=== PATIENT | male | born 1945 | race Caucasian/White ===

== ENCOUNTER 2018-09-29 10:01 | Outpatient (CLI) | payer MEDICARE ==
--- NOTE | 2018-09-29 10:41 | ULT ---
Abdominal aortic sonogram with duplex evaluation HISTORY: Screening for aneurysm. Family history of aneurysm. FINDINGS: Good color and spectral Doppler flow within the abdominal aorta and inferior vena cava. Abd ominal aorta measures 2.3 cm greatest AP diameter. No free fluid in the retroperitoneum. Each iliac artery has a normal appearance. IMPRESSION: No sonographic evidence of abdominal aortic aneurysm.
== END 2018-09-29 10:02 | disposition home or self-care (01) ==
LOC: BICULT 10:01
PROVIDERS: ATTEND Family Medicine
DX: Z13.6 Encounter for screening for cardiovascular disorders (principal)
CPT/HCPCS: 76775

== ENCOUNTER 2019-01-10 14:05 | Outpatient (CLI) | payer MEDICARE ==
--- NOTE | 2019-01-10 16:35 | MRI ---
EXAM: MRI lumbar spine without contrast HISTORY: Neurogenic claudication. Bilateral leg pain and weakness, left greater than right. COMPARISON: 07/05/2013 TECHNIQUE: Multiple planar multisequence MR images were obtained of the lumbar spine without contrast . FINDINGS: The patient has had prior fusion of L4-S1 with bilateral pedicle screws. Disc spacers are seen in the intervening disc spaces. Laminectomies have been performed at L5. There is a persistent fluid collection in the epidural surgical bed at L5 measuring 2.9 x 1.0 x 3.9 cm in size. The vertebral bodies and remaining intervertebral discs demonstrate normal height and alignment witho ut fracture or subluxation. Multiple foci of high T2 signal in the bilateral kidneys represent cysts. No marrow signal abnormality is present. The conus medullaris terminates normally at T12/L1. T12/L1: Minimal disc osteophyte complex. No posterior facet arthrosis. No central canal stenosis. Mild bilateral neural foraminal stenosis L1/2: Minimal disc osteophyte complex. Mild bilateral posterior facet arthrosis. No central canal s tenosis. Mild bilateral neural foraminal stenosis L2/3: A small disc osteophyte complex. No posterior facet arthrosis. No central canal stenosis. No neural foraminal stenosis L3/4: A moderate disc osteophyte complex is seen. Moderate to severe bilateral posterior facet arthr osis. Severe central canal stenosis. Moderate to severe neural foraminal stenosis L4/5: Fusion at this level. Posterior facets cannot be assessed secondary to streak artifact from ochoa rdware. No central canal stenosis. No neural foraminal stenosis L5/S1: Fusion at this level. Posterior facets cannot be assessed secondary to streak artifact from h ardware. No central canal stenosis. No neural foraminal stenosis IMPRESSION: Degenerative changes of lumbar spine as above, greatest at L3/4
== END 2019-01-10 14:06 | disposition home or self-care (01) ==
LOC: SCSMRI 14:05
PROVIDERS: ATTEND Anesthesiology Pain Medicine
DX: M48.062 Spinal stenosis, lumbar region with neurogenic claudication (principal); M47.816 Spondylosis without myelopathy or radiculopathy, lumbar region
CPT/HCPCS: 72148

== ENCOUNTER 2019-02-07 13:17 | Outpatient (CLI) | payer MEDICARE ==
--- NOTE | 2019-02-07 13:39 | RAD ---
EXAM: 4 views of the lumbosacral spine HISTORY: Spinal stenosis COMPARISON: None FINDINGS: 4 views of the lumbosacral spine shows normal height and alignment of the vertebral bodies and intervertebral discs without fracture or subluxation. The patient is status post fusion of L4-S1 with bilateral pedicle screws. Intervening disc spacers are seen in the disc spaces. No perihar dware lucency is seen. Laminectomies have been performed at L5. Alignment is unchanged with flexion and extension. The sacroiliac joints are unremarkable. An inferior vena cava filter is seen. IMPRESSION: No significant lumbar spine abnormality.
== END 2019-02-07 13:18 | disposition home or self-care (01) ==
LOC: SCSRAD 13:17
PROVIDERS: ATTEND Neurological Surgery
DX: M54.16 Radiculopathy, lumbar region (principal)
CPT/HCPCS: 72110

== ENCOUNTER 2019-03-04 10:09 | Outpatient (CLI) | payer MEDICARE ==
--- NOTE | 2019-03-04 11:55 | MRI ---
MRI CERVICAL SPINE WITHOUT CONTRAST: HISTORY: Neck pain.. COMPARISON: 02/24/2012. FINDINGS: Straightening of normal cervical lordosis. Appropriate T1 marrow signal intensity of the cervical flakita tebrae. Cervical spine vertebral body height is maintained. No fracture. Type I Modic changes at the anterior C3-C4 disc space. No evidence of ligamentous injury. Visualized brain parenchyma, cervicomedullary junction, cervical cord and the upper thoracic cord hav e a normal size and signal intensity. Prominent T2 hyperintensity in the posterior fossa, unchanged. Findings may represent a philippe cisterna magna. Nonemergent head CT can be performed for con firmation. C2-C3: 1.5 mm of anterolisthesis. No significant central canal stenosis or significant neural foramin al narrowing. C3-C4: Moderate to severe loss of disc space height. Moderate disc-osteophyte complex effaces the sub arachnoid space. Moderate to severe central canal stenosis. Moderate right and left foraminal narrowing due to uncovertebral hypertrophy. C4-C5: Broad-based disc-osteophyte complex nearly effaces the subarachnoid space. Moderate central ca nal stenosis. Mild bilateral neural foraminal narrowing due to uncovertebral hypertrophy. C5-C6: Broad-based disc-osteophyte complex nearly effaces the subarachnoid space. Moderate central ca nal stenosis. Moderate to severe bilateral neural foraminal narrowing due to uncovertebral hypertrophy. C6-C7: Moderate severe loss of disc space height. Broad-based disc-osteophyte complex abuts the theca l sac. Moderate central canal stenosis. Moderate to severe bilateral neural foraminal narrowing. C7-T1: No significant central canal stenosis or significant neural foraminal narrowing. IMPRESSION: 1. Degenerative changes of the cervical spine as detailed above. 2. 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 Dedicated noncontrast head CT can be performed. CODE T Transcribed Date/Time: 03/04/2019 12:17 PM
--- NOTE | 2019-03-04 12:25 | RAD ---
CERVICAL SPINE SERIES WITH FLEXION AND EXTENSION: Date: 03/04/19 HISTORY: Neck pain. FINDINGS: Vertebral bodies are normal in height. There is marked disc narrowing at C3-4, moderate disc narrowin g at C5-6, and marked disc narrowing at C6-7. On the flexion view, most of the flexion occurs at the C4-5 level, with minimal anterolisthesis developing. There is restricted motion of the lower cervical spine. IMPRESSION: Marked arthritic changes of the spine. POS: TPC
--- NOTE | 2019-03-04 13:13 | RAD ---
LUMBAR SPINE SERIES 3 VIEWS: HISTORY: Back pain with left radiculopathy. Postop. COMPARISON: 02/07/2019 exam. FINDINGS: Postoperative changes with bilateral pedicle screws were noted at the L4-, L5, and S1 levels. These flexion and extension views show no abnormal motion on either flexion or extension. Marked disk narr owing is seen at the L2-3 level. IVC filter is incidentally seen. IMPRESSION: Postoperative change of the spine. POS: TPC
== END 2019-03-04 10:10 | disposition home or self-care (01) ==
LOC: SCSMRI 10:09
PROVIDERS: ATTEND Neurological Surgery
DX: M54.16 Radiculopathy, lumbar region (principal); M54.2 Cervicalgia; M47.812 Spondylosis without myelopathy or radiculopathy, cervical region; Z98.890 Other specified postprocedural states
CPT/HCPCS: 72040; 72100; 72141

== ENCOUNTER 2019-07-18 13:24 | Outpatient (CLI) | payer MEDICARE ==
--- NOTE | 2019-07-18 14:24 | ULT ---
US Renal Bilateral STANDARD HISTORY: Cysts seen on lumbar MRI of 01/10/2019 COMPARISON: None. FINDINGS: The right kidney measures 11.8 cm in length and the left kidney measures 12.6 cm in length. Multiple bilateral renal cysts are present the largest of which is in the inferior pole of the left kidney measuring 2.8 cm. The urinary bladder is well distended and normal. IMPRESSION: Bilateral renal cysts.
== END 2019-07-18 13:25 | disposition home or self-care (01) ==
LOC: SCSULT 13:24
PROVIDERS: ATTEND Internal Medicine Nephrology
DX: N18.3 Chronic kidney disease, stage 3 (moderate) (principal); N28.1 Cyst of kidney, acquired
CPT/HCPCS: 76770

== ENCOUNTER 2021-07-18 11:58 | Inpatient (IN) | payer MEDICARE ==
[2021-07-18 12:25] LABS: #Eosinphils 0.2 thou/uL (0.0-0.7); #Lymphocytes 1.5 thou/uL (1.20-3.40); #Monocytes 0.8 thou/uL (0.11-0.59); #Neutrophils 4.2 thou/uL (1.40-6.50); %Basophils 0.3 % (0.0-1.0); %Lymphocytes 22.5 % (21.0-51.0); %Monocytes 12.2 % (0.0-10.0); Hemoglobin 13.7 g/dL (14.0-18.0); Mean Corpuscular HGB CONC 32.7 g/dL (32.0-36.0); Mean Corpuscular Hemoglobin 31.6 pg (27.0-31.0); Mean Corpuscular Volume 96.5 fL (78.0-98.0); Mean Platelet Volume 8.6 fL (7.4-10.4); Platelet Count 226 thou/uL (130-400); RBC Distribution Width 12.9 % (11.5-14.5); Red Blood Cell (RBC) Count 4.34 mill/uL (4.70-6.10); White Blood Cell (WBC) Count 6.7 thou/uL (4.8-10.8)
[2021-07-18 12:52] LABS: ALT (SGPT) 24 U/L (8-55); AST (SGOT) 23 U/L (5-34); Albumin 4.5 g/dL (3.4-4.8); Alkaline Phosphatase 100 U/L (40-110); Anion Gap 18 mmol/L (10-20); BUN (Urea Nitrogen) 27 mg/dL (8.4-25.7); Bilirubin, Total 0.5 mg/dL (0.2-1.2); Calc. Creatinine Clearance 0 mL/min (70-130); Calcium 9.8 mg/dL (7.8-10.44); Carbon Dioxide 19 mmol/L (23-31); Chloride 107 mmol/L (98-107); Globulin 3.2 g/dL (2.4-3.5); Glucose 223 mg/dL (83-110); Lipase 38 U/L (8-78); Potassium 4.7 mmol/L (3.5-5.1); Protein, Total 7.7 g/dL (5.8-8.1); Sodium 139 mmol/L (136-145)
[2021-07-18] MEDS ORDERED: Nitroglycerin 2% Ointment 1 INCH/1 GM Packet ONE (13:14)
[2021-07-18] MEDS ORDERED: Aspirin Chewable 81 MG TAB ONE (13:14)
[2021-07-18] MEDS ORDERED: Morphine 2 MG/ML VIAL SLOW IVP PRN (13:59)
[2021-07-18] MEDS ORDERED: Budesonide 0.5 MG/2 ML NEB NEB SCH (14:00)
[2021-07-18] MEDS ORDERED: Enoxaparin Sodium 100 MG/ML SYRINGE ONE (14:15)
[2021-07-18] MEDS ORDERED: Dextrose 50% Abboject 50 ML SYRINGE SLOW IVP PRN (14:18)
[2021-07-18] MEDS ORDERED: Insulin Regular 300 UNITS/3 ML VIAL SC PRN ×2 (14:18)
[2021-07-18] MEDS ORDERED: Dextrose 5% in Water 1,000 ML IV PRN (14:18)
[2021-07-18] MEDS: Ipratropium Bromide 2.5 ml Neb NEB SCH ×3 (14:31→22:06)
[2021-07-18] MEDS ORDERED: Budesonide 0.5 MG/2 ML NEB ONE (14:34)
[2021-07-18] MEDS ORDERED: Mometasone 200 MCG/Formoterol 5 MCG 120 PUFF INHALER INH PRN (14:42)
[2021-07-18] MEDS ORDERED: Morphine 4 MG/ML VIAL ONE (16:00)
[2021-07-18] MEDS ORDERED: Ipratropium Bromide 2.5 ml Neb ONE (18:05)
[2021-07-18 19:35] VITALS: BMI 31.1
[2021-07-18] MEDS: Atorvastatin Calcium 20 MG TAB PO SCH (20:32)
[2021-07-18] MEDS: Nitroglycerin 2% Ointment 1 INCH/1 GM Packet TOP SCH (20:33)
[2021-07-18 23:56] LABS: SARS-CoV-2 PCR by NAA Not Detected (NotDetected)
[2021-07-19] MEDS: Ipratropium Bromide 2.5 ml Neb NEB SCH ×6 (01:17→22:32)
[2021-07-19] MEDS ORDERED: Morphine 4 MG/ML VIAL SLOW IVP PRN (03:30)
[2021-07-19 04:59] LABS: Cardiac Risk 4.2 (Less than 4.5)
[2021-07-19 07:31] LABS: Anion Gap 16 mmol/L (10-20); BUN (Urea Nitrogen) 28 mg/dL (8.4-25.7); Calc. Creatinine Clearance 53 mL/min (70-130); Carbon Dioxide 22 mmol/L (23-31); Chloride 107 mmol/L (98-107); Potassium 4.2 mmol/L (3.5-5.1); Sodium 141 mmol/L (136-145)
[2021-07-19 07:32] LABS: Calcium 9.4 mg/dL (7.8-10.44); Glucose 130 mg/dL (83-110)
[2021-07-19] MEDS: Sodium Chloride 0.9% 1,000 ML IV SCH ×2 (08:49→18:10)
[2021-07-19] MEDS: Nitroglycerin 2% Ointment 1 INCH/1 GM Packet TOP SCH ×2 (08:50→21:07)
[2021-07-19] MEDS ORDERED: traMADol HCl 50 MG TAB PO SCH ×2 (12:31→12:45)
[2021-07-19] MEDS: Aspirin Chewable 81 MG TAB PO SCH (13:19)
[2021-07-19] MEDS ORDERED: Communication Order-Pharmacy FS SCH (13:45)
[2021-07-19] MEDS: traMADol HCl 50 MG TAB PO SCH (21:06)
[2021-07-19] MEDS: Atorvastatin Calcium 20 MG TAB PO SCH (21:07)
[2021-07-20] MEDS: Ipratropium Bromide 2.5 ml Neb NEB SCH ×6 (02:06→21:53)
[2021-07-20] MEDS: Sodium Chloride 0.9% 1,000 ML IV SCH ×2 (04:00→16:22)
[2021-07-20] MEDS: Aspirin Chewable 81 MG TAB PO SCH (09:05)
[2021-07-20] MEDS: traMADol HCl 50 MG TAB PO SCH ×2 (09:06→20:13)
[2021-07-20] MEDS: Nitroglycerin 2% Ointment 1 INCH/1 GM Packet TOP SCH ×2 (11:57→20:12)
[2021-07-20] MEDS: Atorvastatin Calcium 20 MG TAB PO SCH (20:13)
[2021-07-21] MEDS: Ipratropium Bromide 2.5 ml Neb NEB SCH ×6 (01:50→22:06)
[2021-07-21] MEDS: Sodium Chloride 0.9% 1,000 ML IV SCH ×5 (02:05→23:20)
[2021-07-21 05:22] LABS: Anion Gap 13 mmol/L (10-20); BUN (Urea Nitrogen) 21 mg/dL (8.4-25.7); Calc. Creatinine Clearance 63 mL/min (70-130); Calcium 8.9 mg/dL (7.8-10.44); Carbon Dioxide 20 mmol/L (23-31); Chloride 109 mmol/L (98-107); Glucose 134 mg/dL (83-110); Potassium 4.3 mmol/L (3.5-5.1); Sodium 138 mmol/L (136-145)
[2021-07-21] MEDS: Aspirin Chewable 81 MG TAB PO SCH (09:18)
[2021-07-21] MEDS: traMADol HCl 50 MG TAB PO SCH ×2 (09:18→20:10)
[2021-07-21] MEDS: Nitroglycerin 2% Ointment 1 INCH/1 GM Packet TOP SCH ×2 (09:18→20:11)
[2021-07-21] MEDS: Atorvastatin Calcium 20 MG TAB PO SCH (20:10)
[2021-07-22] MEDS: Ipratropium Bromide 2.5 ml Neb NEB SCH ×4 (01:57→14:52)
[2021-07-22] MEDS: traMADol HCl 50 MG TAB PO SCH (05:26)
[2021-07-22] MEDS: Aspirin Chewable 81 MG TAB PO SCH (05:27)
[2021-07-22 05:42] LABS: ALT (SGPT) 20 U/L (8-55); AST (SGOT) 17 U/L (5-34); Albumin 3.8 g/dL (3.4-4.8); Alkaline Phosphatase 86 U/L (40-110); Anion Gap 11 mmol/L (10-20); BUN (Urea Nitrogen) 20 mg/dL (8.4-25.7); Bilirubin, Total 0.5 mg/dL (0.2-1.2); Calc. Creatinine Clearance 63 mL/min (70-130); Calcium 8.9 mg/dL (7.8-10.44); Carbon Dioxide 21 mmol/L (23-31); Chloride 108 mmol/L (98-107); Globulin 2.8 g/dL (2.4-3.5); Glucose 146 mg/dL (83-110); Protein, Total 6.6 g/dL (5.8-8.1); Sodium 136 mmol/L (136-145)
[2021-07-22] MEDS ORDERED: Lidocaine 1% (PF) 30 ML VIAL ONE (06:30)
[2021-07-22] MEDS ORDERED: Fentanyl 100 MCG/2 ML VIAL ONE (07:05)
[2021-07-22] MEDS ORDERED: Midazolam HCl 2 mg/2 ml Vial ONE (07:05)
[2021-07-22] MEDS ORDERED: Acetaminophen/Codeine 30-300mg Tablet PO PRN ×2 (07:41)
[2021-07-22] MEDS ORDERED: Nitroglycerin 0.4 MG TAB (25 Tab Bottle) SL PRN (07:41)
[2021-07-22] MEDS ORDERED: Sodium Chloride 0.9% 200 ML IV PRN (07:41)
[2021-07-22] MEDS ORDERED: Sodium Chloride 0.9% 1,000 ML IV SCH (07:45)
[2021-07-22] MEDS ORDERED: Iopamidol 370 76% 100 ML VIAL ONE (10:01)
[2021-07-22 11:16] VITALS: BP 135/73; TEMP 97.7
[2021-07-22] MEDS: Sodium Chloride 0.9% 1,000 ML IV SCH (12:58)
[2021-07-22] MEDS: Nitroglycerin 2% Ointment 1 INCH/1 GM Packet TOP SCH (12:58)
== END 2021-07-22 14:45 | disposition home or self-care (01) | DRG 287 ==
LOC: ERS 11:58 → ERHOLD 13:36 → OBSVTOIN 14:01 → 2SW 19:32
PROVIDERS: ADMIT Internal Medicine; ATTEND Internal Medicine
PROC: 4A023N7 Measurement of Cardiac Sampling and Pressure, Left Heart, Percutaneous Approach (ICD-10-PCS; principal; 2021-07-22)
PROC: B2151ZZ Fluoroscopy of Left Heart using Low Osmolar Contrast (ICD-10-PCS; 2021-07-22)
PROC: B2111ZZ Fluoroscopy of Multiple Coronary Arteries using Low Osmolar Contrast (ICD-10-PCS; 2021-07-22)
DX: I25.110 Atherosclerotic heart disease of native coronary artery with unstable angina pectoris (principal); N17.9 Acute kidney failure, unspecified; I44.2 Atrioventricular block, complete; Z20.822 Contact with and (suspected) exposure to COVID-19; E78.5 Hyperlipidemia, unspecified; I12.9 Hypertensive chronic kidney disease with stage 1 through stage 4 chronic kidney disease, or unspecified chronic kidney disease; G47.33 Obstructive sleep apnea (adult) (pediatric); J44.9 Chronic obstructive pulmonary disease, unspecified; E11.22 Type 2 diabetes mellitus with diabetic chronic kidney disease; I44.0 Atrioventricular block, first degree; N18.32 Chronic kidney disease, stage 3b; Z86.711 Personal history of pulmonary embolism; Z79.82 Long term (current) use of aspirin; Z79.51 Long term (current) use of inhaled steroids; Z79.84 Long term (current) use of oral hypoglycemic drugs; Z79.899 Other long term (current) drug therapy; Z87.891 Personal history of nicotine dependence; Z98.890 Other specified postprocedural states
CPT/HCPCS: 36415; 36416; 71045; 80048; 80053; 80061; 83690; 84484; 85025; 93005; 93458; 94640; 94760; 96372; 99152; 99153; J1650; J1815; J2001; J2250; J2270; J3010; J7050; J7620; J7626; Q9967; U0003; U0005

== ENCOUNTER 2021-07-24 10:17 | Emergency (ER) | payer MEDICARE ==
[2021-07-24 11:19] LABS: #Basophils 0.1 thou/uL (0.0-0.2); #Eosinphils 0.6 thou/uL (0.0-0.7); #Lymphocytes 1.3 thou/uL (1.20-3.40); #Monocytes 0.9 thou/uL (0.11-0.59); %Basophils 0.7 % (0.0-1.0); %Eosinophils 7.9 % (0.0-10.0); %Lymphocytes 16.5 % (21.0-51.0); %Monocytes 11.2 % (0.0-10.0); %Neutrophils 63.7 % (42.0-75.0); Hemoglobin 13.2 g/dL (14.0-18.0); Mean Corpuscular HGB CONC 32.2 g/dL (32.0-36.0); Mean Corpuscular Volume 96.3 fL (78.0-98.0); Mean Platelet Volume 8.6 fL (7.4-10.4); Platelet Count 274 thou/uL (130-400); RBC Distribution Width 13.3 % (11.5-14.5); Red Blood Cell (RBC) Count 4.24 mill/uL (4.70-6.10); White Blood Cell (WBC) Count 7.8 thou/uL (4.8-10.8)
[2021-07-24 11:47] LABS: ALT (SGPT) 21 U/L (8-55); AST (SGOT) 27 U/L (5-34); Albumin 4.2 g/dL (3.4-4.8); Alkaline Phosphatase 98 U/L (40-110); Anion Gap 18 mmol/L (10-20); BUN (Urea Nitrogen) 48 mg/dL (8.4-25.7); Bilirubin, Total 0.4 mg/dL (0.2-1.2); Calc. Creatinine Clearance 0 mL/min (70-130); Calcium 9.3 mg/dL (7.8-10.44); Carbon Dioxide 18 mmol/L (23-31); Chloride 108 mmol/L (98-107); Globulin 3.6 g/dL (2.4-3.5); Glucose 138 mg/dL (83-110); Potassium 4.9 mmol/L (3.5-5.1); Protein, Total 7.8 g/dL (5.8-8.1); Sodium 139 mmol/L (136-145)
[2021-07-24 14:08] LABS: Anion Gap 16 mmol/L (10-20); BUN (Urea Nitrogen) 45 mg/dL (8.4-25.7); Calc. Creatinine Clearance 0 mL/min (70-130); Calcium 8.7 mg/dL (7.8-10.44); Carbon Dioxide 18 mmol/L (23-31); Chloride 112 mmol/L (98-107); Glucose 83 mg/dL (83-110); Potassium 4.2 mmol/L (3.5-5.1); Sodium 142 mmol/L (136-145)
== END 2021-07-24 15:20 | disposition home or self-care (01) ==
LOC: ERS 10:17
DX: N17.9 Acute kidney failure, unspecified (principal); R53.1 Weakness; I45.10 Unspecified right bundle-branch block; J44.9 Chronic obstructive pulmonary disease, unspecified; E11.9 Type 2 diabetes mellitus without complications; I10 Essential (primary) hypertension; E78.5 Hyperlipidemia, unspecified; G47.30 Sleep apnea, unspecified
CPT/HCPCS: 36415; 70450; 70551; 72125; 80053; 85025; 93005; 94760

== ENCOUNTER 2021-07-26 09:47 | Outpatient (CLI) | payer MEDICARE | END 2021-07-26 09:48 | disposition home or self-care (01) | LOC: BICRAD 09:47 | PROVIDERS: ATTEND Physician Assistant | DX: M25.512 Pain in left shoulder (principal); M19.012 Primary osteoarthritis, left shoulder ==

== ENCOUNTER 2022-05-31 13:36 | Emergency (ER) | payer MEDICARE ==
[2022-05-31 14:49] LABS: #Eosinphils 0.2 thou/uL (0.0-0.7); #Lymphocytes 1.2 thou/uL (1.20-3.40); #Monocytes 0.6 thou/uL (0.11-0.59); #Neutrophils 4.4 thou/uL (1.40-6.50); %Basophils 0.5 % (0.0-1.0); %Eosinophils 3.8 % (0.0-10.0); %Lymphocytes 18.5 % (21.0-51.0); %Monocytes 9.6 % (0.0-10.0); %Neutrophils 67.6 % (42.0-75.0); Hemoglobin 14.8 g/dL (14.0-18.0); Mean Corpuscular HGB CONC 32.8 g/dL (32.0-36.0); Mean Corpuscular Hemoglobin 31.9 pg (27.0-31.0); Mean Corpuscular Volume 97.4 fl (78.0-98.0); Mean Platelet Volume 8.8 fL (7.4-10.4); Platelet Count 209 10x3/uL (130-400); RBC Distribution Width 12.8 % (11.5-14.5); Red Blood Cell (RBC) Count 4.64 mill/uL (4.70-6.10); White Blood Cell (WBC) Count 6.6 10x3/uL (4.8-10.8)
[2022-05-31 15:16] LABS: ALT (SGPT) 25 U/L (8-55); AST (SGOT) 20 U/L (5-34); Albumin 4.4 g/dL (3.4-4.8); Alkaline Phosphatase 95 U/L (40-110); Anion Gap 15 mmol/L (10-20); BUN (Urea Nitrogen) 34 mg/dL (8.4-25.7); Bilirubin, Total 0.5 mg/dL (0.2-1.2); Calc. Creatinine Clearance 0 mL/min (70-130); Calcium 9.8 mg/dL (7.8-10.44); Carbon Dioxide 22 mmol/L (23-31); Chloride 103 mmol/L (98-107); Estimated GFR 39; Globulin 3.1 g/dL (2.4-3.5); Glucose 205 mg/dL (83-110); Lipase 48 U/L (8-78); Potassium 4.6 mmol/L (3.5-5.1); Protein, Total 7.5 g/dL (5.8-8.1); Sodium 135 mmol/L (136-145)
[2022-05-31] MEDS ORDERED: Aspirin 325 MG TAB ONE (15:47)
== END 2022-05-31 19:57 | disposition home or self-care (01) ==
LOC: ERS 13:36
DX: R07.9 Chest pain, unspecified (principal); J44.9 Chronic obstructive pulmonary disease, unspecified; E11.9 Type 2 diabetes mellitus without complications; I10 Essential (primary) hypertension; E78.5 Hyperlipidemia, unspecified
CPT/HCPCS: 36415; 71045; 80053; 83690; 84484; 85025; 93005

== ENCOUNTER 2022-06-28 14:13 | Emergency (ER) | payer MEDICARE ==
[2022-06-28 14:55] LABS: #Basophils 0.1 thou/uL (0.0-0.2); #Eosinphils 0.2 thou/uL (0.0-0.7); #Lymphocytes 1.3 thou/uL (1.20-3.40); #Monocytes 0.8 thou/uL (0.11-0.59); %Basophils 0.8 % (0.0-1.0); %Eosinophils 3.7 % (0.0-10.0); %Lymphocytes 20.3 % (21.0-51.0); %Monocytes 13.1 % (0.0-10.0); %Neutrophils 62.1 % (42.0-75.0); Hemoglobin 13.3 g/dL (14.0-18.0); Mean Corpuscular HGB CONC 33.6 g/dL (32.0-36.0); Mean Corpuscular Hemoglobin 32.1 pg (27.0-31.0); Mean Corpuscular Volume 95.6 fl (78.0-98.0); Mean Platelet Volume 8.8 fL (7.4-10.4); Platelet Count 229 10x3/uL (130-400); RBC Distribution Width 13.1 % (11.5-14.5); Red Blood Cell (RBC) Count 4.14 mill/uL (4.70-6.10); White Blood Cell (WBC) Count 6.4 10x3/uL (4.8-10.8)
[2022-06-28 15:09] LABS: INR-International Normal Ratio 0.9; PTT 28.3 sec (22.9-36.1); Prothrombin Time 12.9 sec (12.0-14.7)
[2022-06-28 15:15] LABS: ALT (SGPT) 24 U/L (8-55); AST (SGOT) 18 U/L (5-34); Alkaline Phosphatase 84 U/L (40-110); Anion Gap 15 mmol/L (10-20); BUN (Urea Nitrogen) 32 mg/dL (8.4-25.7); Bilirubin, Total 0.4 mg/dL (0.2-1.2); Calc. Creatinine Clearance 0 mL/min (70-130); Calcium 9.9 mg/dL (7.8-10.44); Carbon Dioxide 22 mmol/L (23-31); Chloride 107 mmol/L (98-107); Estimated GFR 36; Glucose 203 mg/dL (83-110); Lipase 43 U/L (8-78); Potassium 4.2 mmol/L (3.5-5.1); Sodium 140 mmol/L (136-145)
[2022-06-28 17:56] LABS: Bacteria/HPF 4+ HPF (None Seen); Bilirubin Negative (Negative); Blood, Urine Negative (Negative); Clarity Cloudy (Clear); Glucose, Urine (Dipstick) 200 mg/dL (Negative); Ketone, Urine Negative (Negative); Leukocyte 75 Leu/uL (Negative); Nitrite Negative (Negative); Protein, Urine (Dipstick) 30 mg/dL (Neg-Trace); RBC/HPF 0-3 HPF (0-3); Specific Gravity, Urine 1.017 (1.002-1.036); Squamous Epithelial None Seen HPF (0-3); Urobilinogen Normal mg/dL (Less than 2); WBC/HPF 21-50 HPF (0-3); pH, Urine 7.5 (5.0-9.0)
== END 2022-06-28 18:07 | disposition home or self-care (01) ==
LOC: ERS 14:13
DX: K62.5 Hemorrhage of anus and rectum (principal); J44.9 Chronic obstructive pulmonary disease, unspecified; E11.9 Type 2 diabetes mellitus without complications; I10 Essential (primary) hypertension; E78.5 Hyperlipidemia, unspecified
CPT/HCPCS: 36415; 80053; 81003; 81015; 82274; 83690; 83735; 84484; 85025; 85610; 85730; 86850; 86900; 86901; 93005

== ENCOUNTER 2023-02-05 02:20 | Inpatient (IN) | payer MEDICARE ==
[2023-02-05 03:03] LABS: Bacteria/HPF None Seen HPF (None Seen); Bilirubin Negative (Negative); Blood, Urine Negative (Negative); CAUTI Indications for Culture Pelvic or flank pain; Clarity Clear (Clear); Glucose, Urine (Dipstick) 500 mg/dL (Negative); Ketone, Urine 20 mg/dL (Negative); Leukocyte Negative Leu/uL (Negative); Nitrite Negative (Negative); Protein, Urine (Dipstick) 50 mg/dL (Neg-Trace); RBC/HPF 0-3 HPF (0-3); Specific Gravity, Urine 1.014 (1.002-1.036); Squamous Epithelial 0-3 HPF (0-3); Urobilinogen Normal mg/dL (Less than 2); WBC/HPF 0-3 HPF (0-3)
[2023-02-05 03:30] LABS: Urine Culture Reflex No No
[2023-02-05 04:04] LABS: #Monocytes 0.7 thou/uL (0.11-0.59); #Neutrophils 12.6 thou/uL (1.40-6.50); %Basophils 0.3 % (0.0-1.0); %Eosinophils 0.1 % (0.0-10.0); %Lymphocytes 4.4 % (21.0-51.0); %Monocytes 5.1 % (0.0-10.0); %Neutrophils 89.5 % (42.0-75.0); Hematocrit 41.2 % (42.0-52.0); Hemoglobin 13.1 g/dL (14.0-18.0); Mean Corpuscular HGB CONC 31.8 g/dL (32.0-36.0); Mean Corpuscular Hemoglobin 28.9 pg (27.0-31.0); Mean Corpuscular Volume 90.9 fl (78.0-98.0); Mean Platelet Volume 12.1 fL (7.4-10.4); Platelet Count 233 10x3/uL (130-400); RBC Distribution Width 15.8 % (11.5-14.5); Red Blood Cell (RBC) Count 4.53 mill/uL (4.70-6.10)
[2023-02-05 04:51] LABS: ALT (SGPT) 22 U/L (8-55); AST (SGOT) 23 U/L (5-34); Albumin 5.1 g/dL (3.4-4.8); Alkaline Phosphatase 91 U/L (40-110); Anion Gap 22 mmol/L (10-20); BUN (Urea Nitrogen) 40 mg/dL (8.4-25.7); Bilirubin, Total 0.5 mg/dL (0.2-1.2); Calc. Creatinine Clearance 0 mL/min (70-130); Calcium 10.6 mg/dL (7.8-10.44); Carbon Dioxide 18 mmol/L (23-31); Chloride 103 mmol/L (98-107); Estimated GFR 41; Globulin 3.2 g/dL (2.4-3.5); Glucose 252 mg/dL (83-110); Lipase 40 U/L (8-78); Magnesium 1.9 mg/dL (1.6-2.6); Potassium 4.6 mmol/L (3.5-5.1); Protein, Total 8.3 g/dL (5.8-8.1); Sodium 138 mmol/L (136-145)
[2023-02-05 04:53] LABS: Troponin I 0.031 ng/mL (< 0.028)
[2023-02-05] MEDS ORDERED: Ondansetron PF 4 MG/2 ML Vial ONE (05:54)
[2023-02-05] MEDS ORDERED: Morphine 4 MG/ML VIAL ONE (05:54)
[2023-02-05] MEDS ORDERED: Piperacillin/Tazobactam 3.375 GM VIAL ONE (05:55)
[2023-02-05] MEDS ORDERED: Ondansetron ODT 4 MG TAB PO PRN (07:17)
[2023-02-05] MEDS ORDERED: Acetaminophen 325 MG TAB PO PRN (07:17)
[2023-02-05] MEDS ORDERED: Morphine 4 MG/ML VIAL SLOW IVP PRN (07:17)
[2023-02-05] MEDS ORDERED: Ondansetron PF 4 MG/2 ML Vial IVP PRN (07:17)
[2023-02-05] MEDS ORDERED: Glucagon 1 MG/ML KIT IM PRN (07:24)
[2023-02-05] MEDS ORDERED: Dextrose 5% in Water 1,000 ML IV PRN (07:24)
[2023-02-05] MEDS ORDERED: Dextrose 50% Abboject 50 ML SYRINGE SLOW IVP PRN (07:24)
[2023-02-05] MEDS ORDERED: Albuterol 200 PUFF (6.7GM INHALER) INH PRN (07:25)
[2023-02-05 08:21] LABS: Troponin I 0.098 ng/mL (< 0.028)
[2023-02-05] MEDS ORDERED: Heparin 5,000 UNITS/ML VIAL SC SCH (09:00)
[2023-02-05] MEDS ORDERED: Piperacillin/Tazobactam 3.375 GM in Sodium Chloride 0.9% 100 ML IVPB SCH ×2 (10:00→12:00)
[2023-02-05] MEDS: Sodium Chloride 0.9% 1,000 ML IV SCH ×3 (10:32→20:32)
[2023-02-05] MEDS: Aspirin Chewable 81 MG TAB PO SCH (10:34)
[2023-02-05] MEDS: Atorvastatin Calcium 40 MG TAB PO SCH (10:36)
[2023-02-05] MEDS: Pantoprazole 40 MG VIAL IVP SCH (10:41)
[2023-02-05] MEDS ORDERED: Insulin Regular 300 UNITS/3 ML VIAL ONE (11:15)
[2023-02-05] MEDS: HumaLOG 300 UNITS/3 ML VIAL SC PRN (11:22)
[2023-02-05 11:50] LABS: Troponin I 0.109 ng/mL (< 0.028)
[2023-02-05] MEDS: Morphine 2 MG/ML VIAL SLOW IVP PRN (13:10)
[2023-02-05] MEDS ORDERED: Iopamidol-370 76% 500 ML MDV (1 ML CHARGE) ONE (13:18)
[2023-02-05] MEDS: Piperacillin/Tazobactam 3.375 GM in Sodium Chloride 0.9% 100 ML IVPB SCH ×2 (13:31→20:40)
[2023-02-05] MEDS: Dextrose 5 %-0.45 % NaCl 1,000 ML IV SCH (21:37)
[2023-02-06] MEDS ORDERED: Sevoflurane 250 ML INH ANEST BOTTLE ONE (05:18)
[2023-02-06 05:36] LABS: #Eosinphils 0.1 thou/uL (0.0-0.7); #Monocytes 1.4 thou/uL (0.11-0.59); #Neutrophils 9.2 thou/uL (1.40-6.50); %Basophils 0.3 % (0.0-1.0); %Eosinophils 0.9 % (0.0-10.0); %Lymphocytes 8.3 % (21.0-51.0); %Monocytes 12.1 % (0.0-10.0); %Neutrophils 78.1 % (42.0-75.0); Hemoglobin 12.4 g/dL (14.0-18.0); Mean Corpuscular Hemoglobin 28.7 pg (27.0-31.0); Mean Corpuscular Volume 92.6 fl (78.0-98.0); Mean Platelet Volume 11.1 fL (7.4-10.4); Platelet Count 204 10x3/uL (130-400); Red Blood Cell (RBC) Count 4.32 mill/uL (4.70-6.10); White Blood Cell (WBC) Count 11.8 10x3/uL (4.8-10.8)
[2023-02-06] MEDS: Piperacillin/Tazobactam 3.375 GM in Sodium Chloride 0.9% 100 ML IVPB SCH ×3 (05:42→21:45)
[2023-02-06] MEDS: Dextrose 5 %-0.45 % NaCl 1,000 ML IV SCH ×2 (05:43→14:05)
[2023-02-06] MEDS: Morphine 2 MG/ML VIAL SLOW IVP PRN (05:46)
[2023-02-06 05:55] LABS: ALT (SGPT) 19 U/L (8-55); AST (SGOT) 16 U/L (5-34); Alkaline Phosphatase 67 U/L (40-110); Anion Gap 12 mmol/L (10-20); BUN (Urea Nitrogen) 23 mg/dL (8.4-25.7); Bilirubin, Total 0.8 mg/dL (0.2-1.2); Calc. Creatinine Clearance 0 mL/min (70-130); Calcium 9.2 mg/dL (7.8-10.44); Carbon Dioxide 23 mmol/L (23-31); Chloride 105 mmol/L (98-107); Estimated GFR 48; Globulin 2.8 g/dL (2.4-3.5); Glucose 113 mg/dL (83-110); Potassium 3.8 mmol/L (3.5-5.1); Protein, Total 6.8 g/dL (5.8-8.1); Sodium 136 mmol/L (136-145)
[2023-02-06] MEDS ORDERED: EPINEPHrine 1 MG/ML AMP ONE (08:07)
[2023-02-06] MEDS ORDERED: Bupivacaine 0.25% HCL 30 ML VIAL ONE (08:07)
[2023-02-06] MEDS: Atorvastatin Calcium 40 MG TAB PO SCH (08:14)
[2023-02-06] MEDS: Aspirin Chewable 81 MG TAB PO SCH (08:14)
[2023-02-06] MEDS: Pantoprazole 40 MG VIAL IVP SCH (08:15)
[2023-02-06] MEDS ORDERED: Norepinephrine 4 MG/4 ML VIAL ONE (08:24)
[2023-02-06] MEDS ORDERED: Vasopressin 20 UNITS/ML VIAL ONE (08:24)
[2023-02-06] MEDS ORDERED: fentaNYL PF 100 MCG/2 ML SYRINGE ONE (08:24)
[2023-02-06] MEDS ORDERED: Lidocaine 1% PF 5 ML VIAL ONE (08:31)
[2023-02-06] MEDS ORDERED: diphenhydrAMINE 50 MG/ML VIAL ONE (08:31)
[2023-02-06] MEDS ORDERED: Ketorolac Tromethamine 30 MG/ML VIAL ONE (08:31)
[2023-02-06] MEDS ORDERED: Glycopyrrolate 0.2 MG/ML 5 ML SYRINGE ONE (08:31)
[2023-02-06] MEDS ORDERED: NEOSTIGMINE 3 MG/3 ML SYR 3 MG/3 ML SYRINGE ONE (08:31)
[2023-02-06] MEDS ORDERED: PHENYLEPHRINE-NS 100 MCG/ML 10 ML SYRINGE ONE (08:31)
[2023-02-06] MEDS ORDERED: PROPOFOL 200 MG/20 ML VIAL ONE (08:31)
[2023-02-06] MEDS ORDERED: Ondansetron PF 4 MG/2 ML Vial ONE (08:31)
[2023-02-06] MEDS ORDERED: Rocuronium Bromide 10 MG/ML (10ML VIAL) ONE (08:31)
[2023-02-06 10:56] VITALS: BMI 25.9
[2023-02-06] MEDS: HumaLOG 300 UNITS/3 ML VIAL SC PRN (14:06)
[2023-02-06] MEDS: Insulin Glargine 30 UNITS/0.3 ML VIAL SC SCH (21:46)
[2023-02-07] MEDS: Piperacillin/Tazobactam 3.375 GM in Sodium Chloride 0.9% 100 ML IVPB SCH ×3 (05:54→21:31)
[2023-02-07 06:34] LABS: Hematocrit 38.1 % (42.0-52.0); Hemoglobin 11.8 g/dL (14.0-18.0); Mean Corpuscular Hemoglobin 28.6 pg (27.0-31.0); Mean Corpuscular Volume 92.3 fl (78.0-98.0); Mean Platelet Volume 11.5 fL (7.4-10.4); Platelet Count 202 10x3/uL (130-400); RBC Distribution Width 16.1 % (11.5-14.5); Red Blood Cell (RBC) Count 4.13 mill/uL (4.70-6.10)
[2023-02-07 07:32] LABS: Anion Gap 14 mmol/L (10-20); BUN (Urea Nitrogen) 22 mg/dL (8.4-25.7); Calc. Creatinine Clearance 47 mL/min (70-130); Calcium 9.2 mg/dL (7.8-10.44); Carbon Dioxide 24 mmol/L (23-31); Chloride 107 mmol/L (98-107); Estimated GFR 40; Glucose 57 mg/dL (83-110); Potassium 3.7 mmol/L (3.5-5.1); Sodium 141 mmol/L (136-145)
[2023-02-07 07:39] LABS: ALT (SGPT) 20 U/L (8-55); AST (SGOT) 17 U/L (5-34); Albumin 3.8 g/dL (3.4-4.8); Alkaline Phosphatase 70 U/L (40-110); Bilirubin, Direct 0.5 mg/dL (0.1-0.3); Bilirubin, Total 0.8 mg/dL (0.2-1.2); Protein, Total 6.7 g/dL (5.8-8.1)
[2023-02-07] MEDS ORDERED: traMADol HCl 50 MG TAB PO PRN ×2 (08:41→08:43)
[2023-02-07] MEDS: Aspirin Chewable 81 MG TAB PO SCH (09:20)
[2023-02-07] MEDS: Pantoprazole 40 MG VIAL IVP SCH (09:20)
[2023-02-07] MEDS: Atorvastatin Calcium 40 MG TAB PO SCH (09:20)
[2023-02-07] MEDS: Heparin 5,000 UNITS/ML VIAL SC SCH ×2 (09:21→21:30)
[2023-02-07] MEDS: Acetaminophen 500 MG TAB PO SCH ×2 (12:25→17:22)
[2023-02-07] MEDS: traMADol HCl 50 MG TAB PO SCH ×2 (12:26→17:22)
[2023-02-07] MEDS: Insulin Glargine 30 UNITS/0.3 ML VIAL SC SCH (21:32)
[2023-02-08] MEDS: Acetaminophen 500 MG TAB PO SCH ×5 (01:16→23:44)
[2023-02-08] MEDS: traMADol HCl 50 MG TAB PO SCH ×5 (01:17→23:43)
[2023-02-08] MEDS: Piperacillin/Tazobactam 3.375 GM in Sodium Chloride 0.9% 100 ML IVPB SCH ×3 (05:21→21:57)
[2023-02-08] MEDS ORDERED: FLU VACC QS2023(65UP)/MF59C/PF 60 MCG/0.5 ML SYRINGE IM ONE (09:00)
[2023-02-08] MEDS: Heparin 5,000 UNITS/ML VIAL SC SCH (09:25)
[2023-02-08] MEDS: Atorvastatin Calcium 40 MG TAB PO SCH (09:26)
[2023-02-08] MEDS: Aspirin Chewable 81 MG TAB PO SCH (09:26)
[2023-02-08] MEDS: Pantoprazole 40 MG VIAL IVP SCH (09:26)
[2023-02-08] MEDS: HumaLOG 300 UNITS/3 ML VIAL SC PRN (13:11)
[2023-02-08] MEDS: Apixaban 5 MG TAB PO SCH (21:57)
[2023-02-09] MEDS: Acetaminophen 500 MG TAB PO SCH ×4 (05:17→23:29)
[2023-02-09] MEDS: Piperacillin/Tazobactam 3.375 GM in Sodium Chloride 0.9% 100 ML IVPB SCH ×2 (05:18→20:00)
[2023-02-09] MEDS: traMADol HCl 50 MG TAB PO SCH ×3 (05:18→23:28)
[2023-02-09 06:53] LABS: Hematocrit 34.2 % (42.0-52.0); Hemoglobin 10.6 g/dL (14.0-18.0); Mean Corpuscular Hemoglobin 28.4 pg (27.0-31.0); Mean Corpuscular Volume 91.7 fl (78.0-98.0); Mean Platelet Volume 10.8 fL (7.4-10.4); Platelet Count 242 10x3/uL (130-400); RBC Distribution Width 15.7 % (11.5-14.5); Red Blood Cell (RBC) Count 3.73 mill/uL (4.70-6.10); White Blood Cell (WBC) Count 5.5 10x3/uL (4.8-10.8)
[2023-02-09 06:59] LABS: Hemoglobin A1c 5.9 % (4.0-6.0)
[2023-02-09 07:18] LABS: Anion Gap 13 mmol/L (10-20); BUN (Urea Nitrogen) 22 mg/dL (8.4-25.7); Calc. Creatinine Clearance 46 mL/min (70-130); Carbon Dioxide 24 mmol/L (23-31); Chloride 108 mmol/L (98-107); Potassium 3.7 mmol/L (3.5-5.1); Sodium 141 mmol/L (136-145)
[2023-02-09 07:19] LABS: Calcium 8.9 mg/dL (7.8-10.44); Estimated GFR 39; Glucose 115 mg/dL (83-110)
[2023-02-09] MEDS: Senokot 8.6 MG TAB PO SCH (12:00)
[2023-02-09] MEDS: Atorvastatin Calcium 40 MG TAB PO SCH (12:00)
[2023-02-09] MEDS: Pantoprazole 40 MG VIAL IVP SCH (12:00)
[2023-02-09] MEDS: Aspirin Chewable 81 MG TAB PO SCH (12:00)
[2023-02-09] MEDS: Apixaban 5 MG TAB PO SCH ×2 (12:00→21:20)
[2023-02-09] MEDS: Polyethylene Glycol 3350 17 GM Packet PO SCH (12:01)
[2023-02-09 21:18] VITALS: TEMP 98.2
[2023-02-10] MEDS: Acetaminophen 500 MG TAB PO SCH ×2 (05:08→11:57)
[2023-02-10] MEDS: traMADol HCl 50 MG TAB PO SCH ×2 (05:12→11:56)
[2023-02-10] MEDS: Polyethylene Glycol 3350 17 GM Packet PO SCH (11:58)
[2023-02-10] MEDS: Apixaban 5 MG TAB PO SCH (11:58)
[2023-02-10] MEDS: Aspirin Chewable 81 MG TAB PO SCH (11:58)
[2023-02-10] MEDS: Atorvastatin Calcium 40 MG TAB PO SCH (11:58)
[2023-02-10] MEDS: Pantoprazole 40 MG VIAL IVP SCH (11:58)
[2023-02-10] MEDS: Senokot 8.6 MG TAB PO SCH (11:59)
[2023-02-10 15:22] VITALS: BP 144/77
== END 2023-02-10 17:04 | disposition home health service (06) | DRG 417 ==
LOC: ERS 02:20 → SUATTDRO 02:20 → ERHOLD 07:24 → SJJU 12:37
PROVIDERS: ADMIT Family Medicine; ATTEND Internal Medicine
PROC: 0FT44ZZ Resection of Gallbladder, Percutaneous Endoscopic Approach (ICD-10-PCS; principal; 2023-02-06)
PROC: 5A09357 Assistance with Respiratory Ventilation, Less than 24 Consecutive Hours, Continuous Positive Airway Pressure (ICD-10-PCS; 2023-02-06)
DX: K80.12 Calculus of gallbladder with acute and chronic cholecystitis without obstruction (principal); I21.A1 Myocardial infarction type 2; J44.9 Chronic obstructive pulmonary disease, unspecified; E78.5 Hyperlipidemia, unspecified; E11.40 Type 2 diabetes mellitus with diabetic neuropathy, unspecified; N18.30 Chronic kidney disease, stage 3 unspecified; E11.22 Type 2 diabetes mellitus with diabetic chronic kidney disease; I12.9 Hypertensive chronic kidney disease with stage 1 through stage 4 chronic kidney disease, or unspecified chronic kidney disease; E11.649 Type 2 diabetes mellitus with hypoglycemia without coma; I25.10 Atherosclerotic heart disease of native coronary artery without angina pectoris; Z79.82 Long term (current) use of aspirin; Z79.51 Long term (current) use of inhaled steroids; Z79.4 Long term (current) use of insulin; Z79.01 Long term (current) use of anticoagulants; Z98.890 Other specified postprocedural states; Z79.899 Other long term (current) drug therapy; Z86.718 Personal history of other venous thrombosis and embolism; Z91.199 Patient's noncompliance with other medical treatment and regimen due to unspecified reason
CPT/HCPCS: 36415; 36416; 71045; 74177; 76705; 80048; 80053; 80076; 81001; 82010; 83036; 83690; 83735; 83880; 83930; 84484; 85025; 85027; 88304; 93005; 93010; 93970; 96361; 96365; 96375; C1889; C9113; J0171; J1200; J1644; J1815; J1885; J2270; J2272; J2405; J2543; J2704; J3490; J7042; J7050; J7070; Q9967; S0020

== ENCOUNTER 2023-04-03 13:36 | Inpatient (IN) | payer MEDICARE ==
[2023-04-03] MEDS ORDERED: Dextrose 10% in Water 250 ML ONE (13:48)
[2023-04-03 14:09] LABS: #Monocytes 0.7 thou/uL (0.11-0.59); #Neutrophils 3.5 thou/uL (1.40-6.50); %Basophils 0.2 % (0.0-1.0); %Lymphocytes 8.9 % (21.0-51.0); %Monocytes 15.5 % (0.0-10.0); Hemoglobin 13.4 g/dL (14.0-18.0); Mean Corpuscular HGB CONC 31.9 g/dL (32.0-36.0); Mean Corpuscular Hemoglobin 29.5 pg (27.0-31.0); Mean Corpuscular Volume 92.3 fl (78.0-98.0); Mean Platelet Volume 10.5 fL (7.4-10.4); Platelet Count 227 10x3/uL (130-400); RBC Distribution Width 16.6 % (11.5-14.5); Red Blood Cell (RBC) Count 4.55 mill/uL (4.70-6.10); White Blood Cell (WBC) Count 4.7 10x3/uL (4.8-10.8)
[2023-04-03 14:36] LABS: Troponin I 0.016 ng/mL (< 0.028)
[2023-04-03 14:50] LABS: ALT (SGPT) 29 U/L (8-55); AST (SGOT) 44 U/L (5-34); Albumin 4.5 g/dL (3.4-4.8); Alkaline Phosphatase 106 U/L (40-110); Anion Gap 20 mmol/L (10-20); BUN (Urea Nitrogen) 33 mg/dL (8.4-25.7); Bilirubin, Total 0.5 mg/dL (0.2-1.2); Calc. Creatinine Clearance 0 mL/min (70-130); Calcium 9.5 mg/dL (7.8-10.44); Carbon Dioxide 20 mmol/L (23-31); Chloride 103 mmol/L (98-107); Estimated GFR 39; Globulin 4.5 g/dL (2.4-3.5); Glucose 35 mg/dL (83-110); Sodium 138 mmol/L (136-145)
[2023-04-03 15:49] LABS: Bacteria/HPF None Seen HPF (None Seen); Bilirubin Negative (Negative); Blood, Urine Negative (Negative); CAUTI Indications for Culture Alt mental st,lethar; Clarity Clear (Clear); Glucose, Urine (Dipstick) Normal (Negative); Ketone, Urine Negative (Negative); Leukocyte Negative Leu/uL (Negative); Nitrite Negative (Negative); Protein, Urine (Dipstick) 70 mg/dL (Neg-Trace); RBC/HPF 0-3 HPF (0-3); Specific Gravity, Urine 1.019 (1.002-1.036); Squamous Epithelial None Seen HPF (0-3); Urobilinogen Normal mg/dL (Less than 2); WBC/HPF 0-3 HPF (0-3); pH, Urine 5.5 (5.0-9.0)
[2023-04-03 15:57] LABS: Urine Culture Reflex No No
[2023-04-03] MEDS ORDERED: Acetaminophen 650 MG Suppository PR PRN (17:04)
[2023-04-03] MEDS ORDERED: Dextrose 50% Abboject 50 ML SYRINGE SLOW IVP PRN (17:04)
[2023-04-03] MEDS ORDERED: Dextrose 5% in Water 1,000 ML IV PRN (17:04)
[2023-04-03] MEDS ORDERED: Glucagon 1 MG/ML KIT IM PRN (17:04)
[2023-04-03] MEDS ORDERED: Albuterol 200 PUFF (6.7GM INHALER) INH PRN (17:10)
[2023-04-03] MEDS ORDERED: Non-Formulary Item 1 EACH (Tiotropium [Spiriva Handihaler] 18 MCG Box) INH PRN (17:10)
[2023-04-03] MEDS ORDERED: Ipratropium/Albuterol 3 ML NEB NEB PRN (17:11)
[2023-04-03] MEDS ORDERED: Benzonatate 100 MG CAP PO PRN (17:11)
[2023-04-03 17:43] LABS: SARS-CoV-2 NAA Rapid Test DETECTED (NotDetected)
[2023-04-03 18:37] VITALS: BMI 26.2
[2023-04-03] MEDS: Apixaban 5 MG TAB PO SCH (21:01)
[2023-04-03] MEDS: Acetaminophen 325 MG TAB PO PRN (21:04)
[2023-04-04 05:46] LABS: Hematocrit 38.9 % (42.0-52.0); Hemoglobin 12.3 g/dL (14.0-18.0); Manual Diff?? YES; Mean Corpuscular HGB CONC 31.6 g/dL (32.0-36.0); Mean Corpuscular Volume 91.7 fl (78.0-98.0); Mean Platelet Volume 10.3 fL (7.4-10.4); Platelet Count 194 10x3/uL (130-400); RBC Distribution Width 16.4 % (11.5-14.5); Red Blood Cell (RBC) Count 4.24 mill/uL (4.70-6.10); White Blood Cell (WBC) Count 2.9 10x3/uL (4.8-10.8)
[2023-04-04 06:00] LABS: Delete Auto Diff?? YES
[2023-04-04 06:26] LABS: ALT (SGPT) 23 U/L (8-55); AST (SGOT) 25 U/L (5-34); Albumin 3.9 g/dL (3.4-4.8); Alkaline Phosphatase 89 U/L (40-110); Anion Gap 14 mmol/L (10-20); BUN (Urea Nitrogen) 32 mg/dL (8.4-25.7); Bilirubin, Total 0.5 mg/dL (0.2-1.2); Calc. Creatinine Clearance 47 mL/min (70-130); Carbon Dioxide 23 mmol/L (23-31); Chloride 102 mmol/L (98-107); Estimated GFR 40; Globulin 3.1 g/dL (2.4-3.5); Glucose 108 mg/dL (83-110); Potassium 3.8 mmol/L (3.5-5.1); Sodium 135 mmol/L (136-145)
[2023-04-04 06:33] LABS: Band 5 % (5-11); CellaVision Operator ID lab.abc; Eosinophils 1 % (0-10); Large Platelets 10.1 % (0-5); Lymphocytes 14 % (21-51); Monocytes 20 % (0-10); Neutrophil 59 % (42-75); Platelet Adequacy Comment Platelets Normal; RBC Morphology Within Normal Limits; Reactive Lymphocytes 1 % (0-10); Smudge Cells 10.1 %; Total Cell Count 99
[2023-04-04] MEDS ORDERED: Atorvastatin Calcium 40 MG TAB PO SCH (09:00)
[2023-04-04] MEDS: Apixaban 5 MG TAB PO SCH ×2 (09:52→21:13)
[2023-04-04] MEDS: Cholecalciferol (Vitamin D3) 400 UNITS TAB PO SCH (09:52)
[2023-04-04] MEDS: Aspirin Chewable 81 MG TAB PO SCH (09:52)
[2023-04-04] MEDS: Ascorbic Acid 500 mg Chewable Tablet PO SCH (09:52)
[2023-04-04] MEDS: Zinc Sulfate 220 MG CAP PO SCH (09:52)
[2023-04-04] MEDS: traMADol HCl 50 MG TAB PO SCH (21:12)
[2023-04-04] MEDS: (RENAL) NIRMATRELVIR 150 MG/RITONAVIR 100 MG TABLET PO SCH (21:13)
[2023-04-04] MEDS: Acetaminophen 325 MG TAB PO PRN (21:13)
[2023-04-05 05:32] LABS: #Monocytes 0.6 thou/uL (0.11-0.59); #Neutrophils 1.7 thou/uL (1.40-6.50); %Monocytes 18.9 % (0.0-10.0); %Neutrophils 57.8 % (42.0-75.0); Hematocrit 38.7 % (42.0-52.0); Hemoglobin 12.3 g/dL (14.0-18.0); Mean Corpuscular HGB CONC 31.8 g/dL (32.0-36.0); Mean Corpuscular Hemoglobin 29.6 pg (27.0-31.0); Mean Platelet Volume 10.1 fL (7.4-10.4); Platelet Count 189 10x3/uL (130-400); RBC Distribution Width 16.3 % (11.5-14.5); Red Blood Cell (RBC) Count 4.16 mill/uL (4.70-6.10); White Blood Cell (WBC) Count 2.9 10x3/uL (4.8-10.8)
[2023-04-05 06:03] LABS: Anion Gap 13 mmol/L (10-20); BUN (Urea Nitrogen) 34 mg/dL (8.4-25.7); Calc. Creatinine Clearance 51 mL/min (70-130); Calcium 8.9 mg/dL (7.8-10.44); Carbon Dioxide 24 mmol/L (23-31); Chloride 104 mmol/L (98-107); Estimated GFR 44; Glucose 116 mg/dL (83-110); Magnesium 1.9 mg/dL (1.6-2.6); Potassium 3.6 mmol/L (3.5-5.1); Sodium 137 mmol/L (136-145)
[2023-04-05] MEDS: Aspirin Chewable 81 MG TAB PO SCH (09:58)
[2023-04-05] MEDS: traMADol HCl 50 MG TAB PO SCH ×2 (09:58→20:31)
[2023-04-05] MEDS: CO Q-10 CAPSULE 100 MG PO SCH (09:59)
[2023-04-05] MEDS: Cholecalciferol (Vitamin D3) 400 UNITS TAB PO SCH (09:59)
[2023-04-05] MEDS: Zinc Sulfate 220 MG CAP PO SCH (09:59)
[2023-04-05] MEDS: Ascorbic Acid 500 mg Chewable Tablet PO SCH (09:59)
[2023-04-05] MEDS: Apixaban 5 MG TAB PO SCH ×2 (09:59→20:31)
[2023-04-05] MEDS: (RENAL) NIRMATRELVIR 150 MG/RITONAVIR 100 MG TABLET PO SCH ×2 (10:03→20:32)
[2023-04-06 06:30] LABS: Anion Gap 15 mmol/L (10-20); BUN (Urea Nitrogen) 33 mg/dL (8.4-25.7); Calc. Creatinine Clearance 50 mL/min (70-130); Carbon Dioxide 24 mmol/L (23-31); Chloride 103 mmol/L (98-107); Estimated GFR 43; Glucose 116 mg/dL (83-110); Potassium 3.9 mmol/L (3.5-5.1); Sodium 138 mmol/L (136-145)
[2023-04-06] MEDS: traMADol HCl 50 MG TAB PO SCH (08:48)
[2023-04-06] MEDS: Zinc Sulfate 220 MG CAP PO SCH (08:48)
[2023-04-06] MEDS: Aspirin Chewable 81 MG TAB PO SCH (08:48)
[2023-04-06] MEDS: Apixaban 5 MG TAB PO SCH (08:48)
[2023-04-06] MEDS: CO Q-10 CAPSULE 100 MG PO SCH (08:48)
[2023-04-06] MEDS: Cholecalciferol (Vitamin D3) 400 UNITS TAB PO SCH (08:50)
[2023-04-06] MEDS: Ascorbic Acid 500 mg Chewable Tablet PO SCH (08:50)
[2023-04-06] MEDS: (RENAL) NIRMATRELVIR 150 MG/RITONAVIR 100 MG TABLET PO SCH (08:51)
[2023-04-06 14:19] VITALS: BP 119/72; TEMP 97.7
== END 2023-04-06 14:00 | disposition home or self-care (01) | DRG 637 ==
LOC: ERS 13:36 → 2NO 18:23
PROVIDERS: ADMIT Hospitalist; ATTEND Family Medicine
PROC: XW0DXF5 Introduction of Other New Technology Therapeutic Substance into Mouth and Pharynx, External Approach, New Technology Group 5 (ICD-10-PCS; principal; 2023-04-04)
DX: E11.649 Type 2 diabetes mellitus with hypoglycemia without coma (principal); U07.1 COVID-19; J44.9 Chronic obstructive pulmonary disease, unspecified; E78.5 Hyperlipidemia, unspecified; E11.40 Type 2 diabetes mellitus with diabetic neuropathy, unspecified; E11.22 Type 2 diabetes mellitus with diabetic chronic kidney disease; I12.9 Hypertensive chronic kidney disease with stage 1 through stage 4 chronic kidney disease, or unspecified chronic kidney disease; M19.90 Unspecified osteoarthritis, unspecified site; G47.33 Obstructive sleep apnea (adult) (pediatric); N18.32 Chronic kidney disease, stage 3b; I45.10 Unspecified right bundle-branch block; Z79.82 Long term (current) use of aspirin; Z86.718 Personal history of other venous thrombosis and embolism; Z98.890 Other specified postprocedural states; Z79.899 Other long term (current) drug therapy; Z79.01 Long term (current) use of anticoagulants
CPT/HCPCS: 36415; 36416; 70450; 71045; 80048; 80053; 81001; 83735; 84484; 85025; 86140; 93005

== ENCOUNTER 2024-12-14 12:18 | Observation (INO) | payer MEDICARE ==
[2024-12-14 14:30] LABS: #Basophils 0.07 10x3/uL (0.0-0.2); #Eosinophils 0.21 10x3/uL (0.0-0.7); #Monocytes 0.74 10x3/uL (0.11-0.59); #Neutrophils 5.47 10x3/uL (1.40-6.50); %Basophils 0.9 % (0.0-1.0); %Eosinophils 2.7 % (0.0-10.0); %Lymphocytes 14.4 % (21.0-51.0); %Monocytes 9.7 % (0.0-10.0); %Neutrophils 71.6 % (42.0-75.0); Hematocrit 36.4 % (42.0-52.0); Hemoglobin 11.7 g/dL (14.0-18.0); Mean Corpuscular Hemoglobin 30.0 pg (27.0-31.0); Mean Corpuscular Volume 93.3 fL (78.0-98.0); Platelet Count 218 10x3/uL (130-400); Red Blood Cell (RBC) Count 3.90 mill/uL (4.70-6.10); White Blood Cell (WBC) Count 7.64 10x3/uL (4.8-10.8)
[2024-12-14 14:43] LABS: INR-International Normal Ratio 1.4; PTT 35.5 sec (22.9-36.1); Prothrombin Time 17.5 sec (12.0-14.7)
[2024-12-14 14:48] LABS: ALT (SGPT) 17 U/L (Less than 45); AST (SGOT) 23 U/L (11-34); Albumin 3.8 g/dL (3.1-4.5); Alkaline Phosphatase 102 U/L (40-110); Anion Gap 15 mmol/L (10-20); BUN (Urea Nitrogen) 27 mg/dL (8.4-25.7); Bilirubin, Total 0.6 mg/dL (0.3-1.2); Calc. Creatinine Clearance 0 mL/min (70-130); Calcium 10.0 mg/dL (7.8-10.44); Carbon Dioxide 24 mmol/L (23-31); Chloride 106 mmol/L (98-107); Globulin 3.4 g/dL (2.4-3.5); Glucose 112 mg/dL (83-110); Potassium 4.7 mmol/L (3.5-5.1); Sodium 140 mmol/L (136-145)
[2024-12-14] MEDS ORDERED: Nitroglycerin 0.4 MG TAB (25 Tab Bottle) SL PRN (16:09)
[2024-12-14] MEDS ORDERED: Ondansetron PF 4 MG/2 ML Vial IVP PRN (16:12)
[2024-12-14] MEDS ORDERED: Melatonin 3 MG TAB PO PRN (16:12)
[2024-12-14] MEDS ORDERED: Acetaminophen 325 MG TAB PO PRN (16:12)
[2024-12-14] MEDS ORDERED: Senokot S 8.6-50 MG TAB PO PRN (16:12)
[2024-12-14] MEDS ORDERED: Bisacodyl 10 MG SUPP PR PRN (16:12)
[2024-12-14] MEDS: Apixaban 5 MG TAB PO SCH (20:25)
[2024-12-14] MEDS: Insulin Glargine 30 UNITS/0.3 ML VIAL SC SCH (20:25)
[2024-12-14 21:24] VITALS: BMI 27.8
[2024-12-15] MEDS: Calcium Carbonate 500 MG ChewTAB PO PRN (02:09)
[2024-12-15] MEDS: Aspirin Chewable 81 MG TAB PO SCH (11:00)
[2024-12-15 11:14] VITALS: BP 144/73; TEMP 97.8
[2024-12-15 11:43] LABS: #Basophils 0.06 10x3/uL (0.0-0.2); #Eosinophils 0.16 10x3/uL (0.0-0.7); #Monocytes 0.90 10x3/uL (0.11-0.59); #Neutrophils 7.34 10x3/uL (1.40-6.50); %Basophils 0.6 % (0.0-1.0); %Eosinophils 1.7 % (0.0-10.0); %Lymphocytes 10.0 % (21.0-51.0); %Monocytes 9.5 % (0.0-10.0); %Neutrophils 77.6 % (42.0-75.0); Hematocrit 41.8 % (42.0-52.0); Hemoglobin 13.3 g/dL (14.0-18.0); Mean Corpuscular Hemoglobin 30.2 pg (27.0-31.0); Mean Corpuscular Volume 94.8 fL (78.0-98.0); Platelet Count 254 10x3/uL (130-400); Red Blood Cell (RBC) Count 4.41 mill/uL (4.70-6.10); White Blood Cell (WBC) Count 9.47 10x3/uL (4.8-10.8)
[2024-12-15 13:24] LABS: Anion Gap 16 mmol/L (10-20); BUN (Urea Nitrogen) 25 mg/dL (8.4-25.7); Calc. Creatinine Clearance 52 mL/min (70-130); Calcium 9.8 mg/dL (7.8-10.44); Carbon Dioxide 23 mmol/L (23-31); Cardiac Risk 3.7 (Less than 4.5); Chloride 106 mmol/L (98-107); Cholesterol 139 mg/dl (< 200 Desired); Glucose 145 mg/dL (83-110); HDL Cholesterol 38 mg/dL (>60 Neg Risk); LDL Cholesterol, Calculated 68 mg/dL; Potassium 5.0 mmol/L (3.5-5.1); Sodium 140 mmol/L (136-145); Triglycerides 165 mg/dL (Less than 150)
== END 2024-12-15 16:58 | disposition home or self-care (01) ==
LOC: ERS 12:18 → OBS 19:51
PROVIDERS: ADMIT Family Medicine; ATTEND Internal Medicine
DX: R07.89 Other chest pain (principal); I25.10 Atherosclerotic heart disease of native coronary artery without angina pectoris; I12.9 Hypertensive chronic kidney disease with stage 1 through stage 4 chronic kidney disease, or unspecified chronic kidney disease; N18.32 Chronic kidney disease, stage 3b; J44.9 Chronic obstructive pulmonary disease, unspecified; E78.5 Hyperlipidemia, unspecified; E11.22 Type 2 diabetes mellitus with diabetic chronic kidney disease; E11.40 Type 2 diabetes mellitus with diabetic neuropathy, unspecified; E66.9 Obesity, unspecified; Z68.27 Body mass index [BMI] 27.0-27.9, adult; Z86.718 Personal history of other venous thrombosis and embolism; Z87.891 Personal history of nicotine dependence; Z90.49 Acquired absence of other specified parts of digestive tract; Z79.01 Long term (current) use of anticoagulants; Z79.51 Long term (current) use of inhaled steroids; Z79.4 Long term (current) use of insulin; Z79.899 Other long term (current) drug therapy
CPT/HCPCS: 71045; 78452; 80048; 80053; 80061; 82962 ×2; 83036; 83880; 84484 ×3; 85025 ×2; 85610; 85730; 93017; 99285; A9502; G0378 ×3; J2785 ×2; 36415; 36416; 93005; J1815